=== PATIENT | female | born 1980 | race Caucasian/White ===

== ENCOUNTER 2022-06-10 18:00 | Outpatient (CLI) | payer BC | END 2022-06-10 18:01 | disposition home or self-care (01) | LOC: SLEEPLAB 18:00 | PROVIDERS: ATTEND Family Medicine | DX: G47.33 Obstructive sleep apnea (adult) (pediatric) (principal); R53.83 Other fatigue; R06.83 Snoring; G47.00 Insomnia, unspecified; G47.10 Hypersomnia, unspecified; E66.9 Obesity, unspecified; Z68.32 Body mass index [BMI] 32.0-32.9, adult | CPT/HCPCS: 95800 ==

== ENCOUNTER 2022-08-05 19:30 | Outpatient (CLI) | payer BC | END 2022-08-05 19:31 | disposition home or self-care (01) | LOC: SLEEPLAB 19:30 | PROVIDERS: ATTEND Family Medicine | DX: G47.33 Obstructive sleep apnea (adult) (pediatric) (principal); R53.83 Other fatigue; R06.83 Snoring; G47.10 Hypersomnia, unspecified; G47.00 Insomnia, unspecified; I10 Essential (primary) hypertension; J45.909 Unspecified asthma, uncomplicated; E66.9 Obesity, unspecified; Z68.32 Body mass index [BMI] 32.0-32.9, adult | CPT/HCPCS: 95810 ==